=== PATIENT | female | born 1965 | race Caucasian/White ===

== ENCOUNTER → 2017-04-08 | Outpatient (CLI) | payer BC ==
[~2017-04-08] MED LIST: CYMBALTA PO; GENTAMICIN SUL OU; HYDROCORTISONE30 G6 EXT; LYRICA200 MG PO; SUDAFED 12 HOU120 M1 PO; TEMOVATE 0.05%15 GM EXT; TOPAMAX50 MG PO; TRAMADOL HCL50 M2 PO; ZYRTEC10 M1 PO
--- NOTE | ~2017-04-08 | MR31 ---
[facility] A Service of [facility] RADIOLOGY TEXT RESULTS PATIENT: RAFAEL JACKSON LOCATION: [facility] : [birth year] UNIT #: [id number] AGE: [address]: Noam Swain II, MD SEX: F ORDER DR: [id number] [facility] [address] [place], [place] [address] [id number] O MR#: [id number] Acc #: [id number] NAME: RAFAEL JACKSON : 1965 SEX: F STUDY DATE/TIME: 04/08/2017 16:30 UNIT: [facility] ROOM: STUDY DESCRIPTION: MR Cervical WWo Contrast Attending Physician: Noam Swain II., M.D. Referring Physician: Noam Swain II., M.D. Ordering Physician: Noam Swain II., M.D. Primary Care Physician: Kuldip Maharaj M.D. MRI CENTER REPORT This report is preliminary unless electronic signature is present. EXAM Cervical MRI with and without contrast HISTORY Chronic neck pain since childhood. Worsening pain over the past month with no recent trauma. Pain involves the neck and both arms. TECHNIQUE Multiplanar imaging of the cervical spine was performed with and without contrast. 17 mL of MultiHance was used. COMPARISON Comparison examination from 04/01/2007. FINDINGS Cervical straightening is noted. Degenerative changes are seen throughout the cervical spine. At C2-C3, there is a small central disc bulge. The canal and foramina are widely patent. At C3-C4, there is also mild central disc bulging and mild bilateral facet hypertrophy. Central stenosis is mild. Foraminal narrowing is mild bilaterally. At C4-5, there is central disc bulging and mild bilateral facet disease. Central stenosis is mild. The foramina are widely patent. At C5-6, there is broad-based posterior disc bulging. Central stenosis is present to a mild degree, and the foramina are widely patent. At C6-7, there is anterior osteophyte formation and a broad-based [facility] A Service of [facility] RADIOLOGY TEXT RESULTS PATIENT: RAFAEL JACKSON LOCATION: [facility] : 69 UNIT #: [id number] AGE: [address]: Noam Swain II, MD SEX: F ORDER DR: posterior disc osteophyte complex that extends more to the right than to the left. Central stenosis is moderately severe. The AP diameter of the spinal canal in the midline is about 1 cm. Foraminal stenosis is mild on the left and moderate on the right. At C7-T1, there is mild central disc bulging with osteophyte. Central stenosis and foraminal narrowing are mild. The cord is normal in size and signal. Postcontrast imaging shows no abnormal enhancement. No paraspinous soft tissue masses are seen. Since previous scan 10 years ago, degenerative disc disease has progressed, particularly at C6-7, involving the anterior aspect of the disc. The degree of central canal narrowing has not changed significantly at the other lumbar levels, but is slightly worse at the C6-7 level. IMPRESSION Multilevel degenerative disc and facet disease as described above level by level with moderate central stenosis at C6-7, more to the right than to the left. 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 The other levels show little change. Foraminal stenosis is most prominent on the right at C6-7. Dictated by... Donnie Pickett M.D. THIS IS AN ELECTRONICALLY VERIFIED REPORT Donnie Pickett M.D. at 04/10/2017 9:51 AM Chad TD: 04/09/2017 17:37 JOB #: [id number] MRI CENTER REPORT Page 1 of 1 COPY
== END | disposition home or self-care (01) ==
LOC: CMRI 15:29
DX: M54.81 Occipital neuralgia (principal); M48.02 Spinal stenosis, cervical region; M47.892 Other spondylosis, cervical region; M50.81 Other cervical disc disorders, high cervical region; M50.821 Other cervical disc disorders at C4-C5 level; M50.822 Other cervical disc disorders at C5-C6 level; M50.83 Other cervical disc disorders, cervicothoracic region; M25.78 Osteophyte, vertebrae; M50.323 Other cervical disc degeneration at C6-C7 level
CPT/HCPCS: 72156; A9577